=== PATIENT | female | born 1965 | race Caucasian/White ===

== ENCOUNTER → 2021-09-02 12:57 | Outpatient (REF) | payer BC, SELFPAY ==
[2021-09-02 13:18] LABS: Absolute Lymphocyte Count 1.33 X10^3/uL (0.83-4.51); Absolute Neutrophil Count 3.7 X10^3/uL (2.0-7.7); Basophil# 0.05 X10^3/uL; Basophil% 0.9 % (0-1); Eosinophil# 0.06 X10^3/uL; Eosinophils% 1.1 % (0-5); Hematocrit 42.5 % (37-47); Hemoglobin 13.5 g/dL (12.0-15.0); Lymphocyte # 1.33 X10^3/ul (0.83-4.51); Lymphocyte % 23.9 % (19-41); Mean Corp Hgb Conc 31.8 g/dL (32-36); Mean Corpuscular Hgb 28.8 pg (27.0-32.0); Mean Corpuscular Volume 90.8 fL (81-99); Mean Platelet Vol. 11.6 fl (6.2-12.0); Monocyte# 0.42 X10^3/uL; Monocyte% 7.5 % (0-10); NRBC Flagged by Analyzer 0 % (0-5); Neutrophil % 66.4 % (47-70); Platelet Count 222 K/mm3 (150-450); RBC Distribution Width CV 13.4 % (11.6-14.6); RBC Distribution Width SD 44.7 fl (35.1-43.9); Red Blood Count 4.68 M/mm3 (4.2-5.4); White Blood Count 5.6 K/mm3 (4.4-11.0)
[2021-09-02 13:41] LABS: ALB/GLOB Ratio 0.9 RATIO (0.9-2.4); AST(SGOT) 21 U/L (15-37); Alanine Aminotransfer ALT/SGPT 33 U/L (13-56); Alkaline Phosphatase 73 U/L (45-117); Anion Gap 6 (5-15); BUN 18 mg/dL (7-18); BUN/Creat Ratio 31.9 RATIO (10-20); Calcium,Total 10.3 mg/dL (8.5-10.1); Chloride 103 mmol/L (98-107); Creatinine, Serum 0.56 mg/dL (0.55-1.02); EST Glomerular Filtration Rate 118 mL/min (>60); Est Glom Filt Rate - Afr Amer 142 mL/min (>60); Ferritin 32 ng/mL (8-252); Free T3 5.2 pg/mL (2.18-3.98); Globulin 4.4 g/dL (2.2-4.2); Glucose 81 mg/dL (74-106); Iron 77 ug/dL (50-170); Potassium 3.8 mmol/L (3.5-5.1); Protein, Total 8.4 g/dL (6.4-8.2); Sodium Level 139 mmol/L (136-145); T4 Free Direct 1.05 ng/dL (0.76-1.46); T4 Total, Thyroxin 10.3 ug/dL (4.8-13.9); Thyroid Stim Hormone (TSH) 0.14 uIU/mL (0.358-3.74)
[2021-09-02 14:02] LABS: HIV - WCH Non-Reactive (Nonreactive); Hepatitis B Surface Antibody Non-Reactive; Hepatitis B Surface Antigen Non-Reactive (Nonreactive); Syphilis Antibodies Non-reactive; Vitamin B12 762 pg/mL (211-911); Vitamin D,25 Hydroxy 98.6 ng/mL
[2021-09-03 15:29] LABS: AFP, Tumor Marker 6.4 ng/mL (0.0-8.3); HSV 2 IgG < 0.91 index (0.00-0.90)
== END ==
LOC: LABSPEC 12:57
PROVIDERS: Referring Provider Nurse Practitioner Family; Visit Provider Nurse Practitioner Family
DX: E03.9 Hypothyroidism, unspecified (principal); R53.83 Other fatigue; R63.4 Abnormal weight loss; Z20.2 Contact with and (suspected) exposure to infections with a predominantly sexual mode of transmission
CPT/HCPCS: 80053; 82105; 82306; 82607; 82728; 82746; 83540; 84436; 84439; 84443; 84481; 85025; 86695; 86696; 86703; 86706; 86780; 87340

== ENCOUNTER → 2021-09-04 13:55 | Outpatient (CLI) | payer BC, SELFPAY ==
[2021-09-04 16:58] LABS: Chlamydia Trachomatis by PCR Negative (Negative); Neisserai gonorrhoeae by PCR Negative (Negative); Probe Check PASS; Sample Adequacy Control PASS; Specimen Processing Control PASS
== END ==
PROVIDERS: Visit Provider Nurse Practitioner Family
DX: Z91.89 Other specified personal risk factors, not elsewhere classified (principal)
CPT/HCPCS: 87491; 87591

== ENCOUNTER 2021-12-16 15:24 | Outpatient (REF) | payer BC, MEDICAID, SELFPAY ==
[2021-12-16 16:16] LABS: Free T3 6.8 pg/mL (2.18-3.98); T4 Free Direct 1.01 ng/dL (0.76-1.46); T4 Total, Thyroxin 9.9 ug/dL (4.8-13.9); Thyroid Stim Hormone (TSH) 0.02 uIU/mL (0.358-3.74)
== END 2021-12-16 23:59 | disposition home or self-care (01) ==
LOC: LABSPEC 15:24
PROVIDERS: Visit Provider Nurse Practitioner Family
DX: E03.9 Hypothyroidism, unspecified (principal); L65.9 Nonscarring hair loss, unspecified
CPT/HCPCS: 84436; 84439; 84443; 84481; 86376; 86800

== ENCOUNTER 2022-01-01 14:22 | Outpatient (CLI) | payer BC, MEDICAID, SELFPAY ==
--- NOTE | 2022-01-01 14:30 | CT_ITS ---
STUDY: CT PELVIS WITHOUT CONTRAST REASON FOR EXAM: Female, 56 years old. OVARIAN MASS/ RLQ PAIN RADIATION DOSAGE (If Supplied By Facility): CTDIvol = ( 25.53 ) mGy, DLP = ( 750.61 ) mGycm TECHNIQUE: Transaxial imaging of the pelvis was performed with oral contrast, and without intravenous administration of contrast material. Individualized dose optimization techniques were used for this CT. COMPARISON: None. FINDINGS: The urinary bladder is empty. Normal visualized small intestine. Normal visualized colon. There is no pelvic fluid. There is a 6.5 cm x 4.5 cm septated cystic mass in the central portion of the pelvis extending towards the left side. This most likely represents a left ovarian mass. Correlation with ultrasound is recommended. Normal visualized pelvic arteries. Normal abdominal wall. Normal osseous structures. CT/Pelvis without IV Contrast IMPRESSION: 6.5 cm x 4.5 cm septated cystic mass in the central portion of the pelvis extending to the left side of the pelvis. This is suggestive of a left ovarian cystic structure. Correlation with ultrasound is recommended. Electronically Signed: Timothy Kong MD at 15:03 EDT ,
== END 2022-01-01 23:59 | disposition home or self-care (01) ==
LOC: CT 14:24
PROVIDERS: PCP Nurse Practitioner Family; Visit Provider Nurse Practitioner Family
DX: R10.31 Right lower quadrant pain (principal); R19.09 Other intra-abdominal and pelvic swelling, mass and lump
CPT/HCPCS: 72192

== ENCOUNTER → 2022-01-07 | Outpatient (CLI) | payer BC, MEDICAID, SELFPAY ==
--- NOTE | 2022-01-07 18:30 | US_ITS ---
STUDY: ULTRASOUND OF THE FEMALE PELVIS - COMPLETE REASON FOR EXAM: Female, 56 years old. OV MASS LMP: Postmenopausal. TECHNIQUE: Transabdominal and transvaginal scan. TECHNICAL QUALITY: Adequate. COMPARISON: CT pelvis 01/01/22. FINDINGS: UTERUS: Length 6.4 cm. Retroverted. Heterogeneous with scattered calcifications. ENDOMETRIUM: Not thickened. 0.4 cm. OVARIES: LEFT: Located midline/to the left. 8.5 x 4.7 x 6.8 cm. Large cystic structures, 2 adjacent cysts versus a larger septated cyst with thick septation with vascularity, the 2 components measure 4.3 x 4.7 x 5 cm, and 2.4 x 3.6 x 3.2 cm. Because of the size is difficult to totally exclude nodule or soft tissue component to the cyst wall. Vascular flow demonstrated. No specific findings to suggest ovarian torsion. RIGHT: Not visualized. FREE FLUID: None. US/Pelvic (Non ) IMPRESSION: Large complex cystic mass left ovary corresponding to CT findings, 2 adjacent cysts versus a larger cyst with vascular septation. Differential includes complex cyst and cystic neoplasm. Cannot exclude neoplasm. MRI may be helpful for further clarification. Nonvisualized right ovary. Electronically Signed: Gauri Ny MD at 6:05 EDT ,
== END | disposition home or self-care (01) ==
LOC: US 18:30
PROVIDERS: PCP Nurse Practitioner Family; Visit Provider Nurse Practitioner Family
DX: N83.209 Unspecified ovarian cyst, unspecified side (principal)
CPT/HCPCS: 76856

== ENCOUNTER → 2022-01-13 | Outpatient (CLI) | payer BC, MEDICAID, SELFPAY ==
[2022-01-13 16:08] LABS: Absolute Neutrophil Count 2.3 X10^3/uL (2.0-7.7); Basophil# 0.04 X10^3/uL; Eosinophil# 0.07 X10^3/uL; Eosinophils% 1.7 % (0-5); Hematocrit 43.7 % (37-47); Hemoglobin 13.6 g/dL (12.0-15.0); Lymphocyte % 33.4 % (19-41); Mean Corp Hgb Conc 31.1 g/dL (32-36); Mean Corpuscular Volume 86.9 fL (81-99); Mean Platelet Vol. 11.6 fl (6.2-12.0); Monocyte# 0.39 X10^3/uL; Monocyte% 9.3 % (0-10); NRBC Flagged by Analyzer 0 % (0-5); Neutrophil # 2.29 X10^3/uL (2.7-7.7); Neutrophil % 54.6 % (47-70); Platelet Count 269 K/mm3 (150-450); RBC Distribution Width CV 13.9 % (11.6-14.6); RBC Distribution Width SD 44.3 fl (35.1-43.9); Red Blood Count 5.03 M/mm3 (4.2-5.4); White Blood Count 4.2 K/mm3 (4.4-11.0)
[2022-01-13 16:22] LABS: Vitamin B12 776 pg/mL (211-911); Vitamin D,25 Hydroxy 61.3 ng/mL
[2022-01-13 16:28] LABS: ALB/GLOB Ratio 1.2 RATIO (0.9-2.4); AST(SGOT) 19 U/L (15-37); Alanine Aminotransfer ALT/SGPT 33 U/L (13-56); Albumin, Serum 3.9 g/dL (3.2-5.0); Alkaline Phosphatase 57 U/L (45-117); Anion Gap 4 (5-15); BUN 17 mg/dL (7-18); Chloride 102 mmol/L (98-107); Creatinine, Serum 0.55 mg/dL (0.55-1.02); EST Glomerular Filtration Rate 121 mL/min (>60); Est Glom Filt Rate - Afr Amer 147 mL/min (>60); Ferritin 30 ng/mL (8-252); Globulin 3.3 g/dL (2.2-4.2); Glucose 78 mg/dL (74-106); Iron 108 ug/dL (50-170); Potassium 4.2 mmol/L (3.5-5.1); Protein, Total 7.2 g/dL (6.4-8.2); Sodium Level 137 mmol/L (136-145)
== END | disposition home or self-care (01) ==
LOC: LABSPEC 15:07
PROVIDERS: PCP Nurse Practitioner Family; Visit Provider Nurse Practitioner Family
DX: R53.83 Other fatigue (principal); E03.9 Hypothyroidism, unspecified
CPT/HCPCS: 80053; 82306; 82607; 82728; 82746; 83540; 85025

== ENCOUNTER → 2022-03-18 | Outpatient (CLI) | payer BC, MEDICAID, SELFPAY ==
[2022-03-18 15:57] LABS: Free T3 2.7 pg/mL (2.18-3.98); T4 Free Direct 1.18 ng/dL (0.76-1.46); Thyroid Stim Hormone (TSH) 0.01 uIU/mL (0.358-3.74)
== END | disposition home or self-care (01) ==
PROVIDERS: PCP Nurse Practitioner Family; Visit Provider Nurse Practitioner Family
DX: E03.9 Hypothyroidism, unspecified (principal)
CPT/HCPCS: 84439; 84443; 84481

== ENCOUNTER 2022-06-26 16:40 | Emergency (ER) | payer BC, MEDICAID, SELFPAY ==
[2022-06-26 16:40] VITALS: BP 126/71; PULSE 79; RESP 16; TEMP 36.6; O2SAT 98; BMI 19.5
--- NOTE | 2022-06-26 19:15 | EX.ED.DYSGE1 ---
HPI History of Present Illness Chief Complaint: Rash Narrative Narrative: 57-year-old female presenting with rash on her face. She states it stress-induced. Recent divorce with her and she moved out. She had this before several years ago and was seen by body repairer. She states the medication the body repairer gave her was very expensive so she was given some samples. She only knows it starts with a C. She does not have any of this anymore. She saw her primary care physician already who stated that she did not want to treat this because it was too close to her eyes and sent her to the emergency room. She is not having any visual complaints. No fevers, chills. She states this is consistent with her previous stress-induced rash. No new soaps, dyes, linens, detergents. [facility] Medical History Anxiety Home Medications cetirizine 10 mg tablet (Zyrtec) 10 mg PO DAILY #30 tabs 06/26/22 [Rx Last Taken Unknown] diphenhydramine HCl 25 mg capsule (Benadryl) 25 mg PO QHS PRN allergic reaction #20 caps 06/26/22 [Rx Last Taken Unknown] methylprednisolone 4 mg tablets in a dose pack (Medrol (Aldo)) 4 mg PO QODAY #21 tabs 06/26/22 [Rx Last Taken Unknown] Allergy/AdvReac Type Severity Reaction Status Date / Time No Known Allergies Allergy Verified 06/26/22 16:43 Social History Smoking Status: Never smoker EXAM Physical Exam Const Vital Signs: 06/26/22 16:40 Temperature 98 F Temperature Source Temporal Pulse Rate 79 Respiratory Rate 16 Blood Pressure 126/71 H Blood Pressure Mean 89 Pulse Ox 98 Oxygen Delivery Method Room Air Positive well nourished General Appearance ED: NAD HEENT Reports moist mucous membranes Eyes PERRL and EOMs intact bilaterally Resp normal respiratory effort and clear to auscultation bilaterally Cardio regular rate and regular rhythm Neuro oriented x3 and CN's II-XII intact bilaterally Motor Exam: strength 5/5 throughout Skin Skin Narrative: Mild erythema noted on the bilateral cheeks and up around the eyes. There are no discrete hives noted. Its not scaling and there is no blistering. Patient actively picking at her face on examination. MDM MDM MDM Narrative Medical decision making narrative: Patient presenting with a rash which she thinks is stress-induced. She tried hydrocortisone cream previously but states this did not work reaction made it worse. Her primary care physician would not treat her because it was too close to her eyes and she sent here to the ER. I think that this is at most an allergic type rash. She is actively picking at her face while I am examining her and while I am interviewing her. She states that she is not doing this at home. It does not look like there is any cellulitis here. I offered her some steroids and she is hesitant to take these because she does not like to take medications. She has not tried Benadryl or Zyrtec. I counseled her that I will give her a Medrol Dosepak, Benadryl, cetirizine for home. I recommended she follow-up with her PCP and with her body repairer to ensure resolution. Impression: 1. Allergic treatment Lab Data Attestation: I reviewed the patient's lab results. Discharge Plan Triage Chief Complaint: Rash ED Provider: Yair Fitch Dx/Rx/DC Orders Instructions: Self-Care for Skin Rashes Prescriptions: New cetirizine [Zyrtec] 10 mg tablet 10 mg PO DAILY Qty: 30 0RF methylprednisolone [Medrol (Aldo)] 4 mg tablets,dose pack 4 mg PO QODAY Qty: 21 0RF diphenhydramine HCl [Benadryl] 25 mg capsule 25 mg PO QHS PRN (Reason: allergic reaction) Qty: 20 0RF Primary Care Provider: Mel Bose NP Referrals: Mel Bose [employer], [employer] [Primary Care Provider] - Disposition Disposition: Home, Self Care
[2022-06-26] MEDS: predniSONE 20 MG Tablet PO (19:28)
== END 2022-06-26 19:33 | disposition home or self-care (01) ==
PROVIDERS: Emergency Provider Student in an Organized Health Care Education/Training Program; PCP Nurse Practitioner Family; Visit Provider Student in an Organized Health Care Education/Training Program
DX: R21 Rash and other nonspecific skin eruption (principal); F41.9 Anxiety disorder, unspecified
CPT/HCPCS: 99283

== ENCOUNTER → 2022-08-30 | Outpatient (CLI) | payer MEDICAID, SELFPAY ==
[2022-08-30 14:18] LABS: T4 Free Direct 1.47 ng/dL (0.76-1.46); Thyroid Stim Hormone (TSH) 0.01 uIU/mL (0.358-3.74)
== END | disposition home or self-care (01) ==
PROVIDERS: PCP Nurse Practitioner Family; Visit Provider Nurse Practitioner Family
DX: E03.9 Hypothyroidism, unspecified (principal)
CPT/HCPCS: 84439; 84443; 84481

== ENCOUNTER → 2022-11-01 | Outpatient (CLI) | payer MEDICAID, SELFPAY ==
[2022-11-01 20:49] LABS: Free T3 1.9 pg/mL (2.18-3.98); Thyroid Stim Hormone (TSH) 0.31 uIU/mL (0.358-3.74)
== END | disposition home or self-care (01) ==
PROVIDERS: PCP Nurse Practitioner Family; Visit Provider Nurse Practitioner Family
DX: E03.9 Hypothyroidism, unspecified (principal)
CPT/HCPCS: 84439; 84443; 84481

== ENCOUNTER → 2023-02-07 | Outpatient (CLI) | payer MEDICAID, SELFPAY ==
[2023-02-07 15:27] LABS: Free T3 4.1 pg/mL (2.18-3.98); Thyroid Stim Hormone (TSH) 0.01 uIU/mL (0.358-3.74)
== END | disposition home or self-care (01) ==
PROVIDERS: PCP Nurse Practitioner Family; Visit Provider Nurse Practitioner Family
DX: E03.9 Hypothyroidism, unspecified (principal)
CPT/HCPCS: 84439; 84443; 84481

== ENCOUNTER → 2023-05-29 | Outpatient (CLI) | payer MEDICAID, SELFPAY ==
[2023-05-29 10:50] LABS: Absolute Lymphocyte Count 1.87 X10^3/uL (0.83-4.51); Absolute Neutrophil Count 2.8 X10^3/uL (2.0-7.7); Basophil# 0.06 X10^3/uL; Basophil% 1.1 % (0-1); Eosinophil# 0.22 X10^3/uL; Eosinophils% 4.1 % (0-5); Hematocrit 40.8 % (37-47); Hemoglobin 12.7 g/dL (12.0-15.0); Lymphocyte # 1.87 X10^3/ul (0.83-4.51); Lymphocyte % 34.6 % (19-41); Mean Corp Hgb Conc 31.1 g/dL (32-36); Mean Corpuscular Hgb 28.5 pg (27.0-32.0); Mean Corpuscular Volume 91.7 fL (81-99); Mean Platelet Vol. 11.6 fl (6.2-12.0); Monocyte# 0.41 X10^3/uL; Monocyte% 7.6 % (0-10); NRBC Flagged by Analyzer 0 % (0-5); Neutrophil # 2.83 X10^3/uL (2.7-7.7); Neutrophil % 52.4 % (47-70); Platelet Count 234 K/mm3 (150-450); RBC Distribution Width SD 50.7 fl (35.1-43.9); Red Blood Count 4.45 M/mm3 (4.2-5.4); White Blood Count 5.4 K/mm3 (4.4-11.0)
[2023-05-29 11:11] LABS: Vitamin B12 646 pg/mL (211-911); Vitamin D,25 Hydroxy 57.2 ng/mL
[2023-05-29 11:17] LABS: ALB/GLOB Ratio 1.1 RATIO (0.9-2.4); AST(SGOT) 24 U/L (15-37); Alanine Aminotransfer ALT/SGPT 36 U/L (13-56); Albumin, Serum 3.8 g/dL (3.2-5.0); Alkaline Phosphatase 69 U/L (45-117); Anion Gap 6 (5-15); BUN 25 mg/dL (7-18); BUN/Creat Ratio 44.2 RATIO (10-20); Calcium,Total 8.7 mg/dL (8.5-10.1); Chloride 103 mmol/L (98-107); Creatinine, Serum 0.56 mg/dL (0.55-1.02); EST Glomerular Filtration Rate 117 mL/min (>60); Est Glom Filt Rate - Afr Amer 141 mL/min (>60); Free T3 2.1 pg/mL (2.18-3.98); Globulin 3.5 g/dL (2.2-4.2); Glucose 66 mg/dL (74-106); Potassium 5.8 mmol/L (3.5-5.1); Protein, Total 7.3 g/dL (6.4-8.2); Sodium Level 138 mmol/L (136-145); T4 Free Direct 0.75 ng/dL (0.76-1.46); Thyroid Stim Hormone (TSH) 1.34 uIU/mL (0.358-3.74)
== END | disposition home or self-care (01) ==
LOC: LABSPEC 10:28
PROVIDERS: PCP Nurse Practitioner Family; Referring Provider Nurse Practitioner Family; Visit Provider Nurse Practitioner Family
DX: R53.82 Chronic fatigue, unspecified (principal); E61.7 Deficiency of multiple nutrient elements; E03.9 Hypothyroidism, unspecified; F32.A Depression, unspecified
CPT/HCPCS: 80053; 82306; 82607; 84439; 84443; 84481; 85025